=== PATIENT | female | born 1945 | race Caucasian/White ===

== ENCOUNTER 2019-08-31 06:55 | Day surgery (SDC) | payer MEDICARE, BC ==
[~2019-08-31] VITALS: Ht 182.9 cm; Wt 103.0 kg
--- NOTE | ~2019-08-31 | OR ---
[facility] [address] [place], [place] [address] Draft DATE OF OPERATION: 08/31/2019 SURGEON: Leonardo Prakash DPM PREOPERATIVE DIAGNOSES: 1. Hammertoes, toes 2-4, right foot. 2. 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 POSTOPERATIVE DIAGNOSES: 1. Hammertoes, toes 2-4, right foot. 2. 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 SUPERINTENDENT TERMINAL SURGEON: Liz Ortiz DPM. ANESTHESIA: IV general with local block, right foot. SURGICAL CLINICAL REVIEWER: Elaine Drake. SPECIMEN TO PATHOLOGY: None. PROCEDURES PERFORMED: 1. Hammertoe correction with PIPJ fusion, toes 2-4, right foot. 2. Tenotomy and capsulotomy performed to the second and third MTPJ with a capsulotomy alone performed to the fourth MTPJ. DESCRIPTION OF PROCEDURE: The patient was brought to the operating room and placed on the table in the supine position. Anesthesia Department administered IV sedation, after which local block was given to the right foot using a total of 10 mL, 1:1 mixture 2% lidocaine plain and 0.5% ropivacaine plain. The right leg and foot was then prepped and draped in the usual sterile manner and an Esmarch was used for hemostasis. Attention was initially directed to the dorsal right foot, dorsal right second digit at the PIPJ. The contracture at the PIPJ identified and the incision made dorsally as an PATIENT NAME: JANAY CUTLER OPERATIVE REPORT DATE OF : 41 REPORT #: [id number] PHYSICIAN: LEONARDO PRAKASH DPM PCP: FANNY KELLY MD REPORT IS CONFIDENTIAL AND NOT TO BE RELEASED WITHOUT AUTHORIZATION [facility] [address] [place], [place] [address] Draft ellipse centered over the PIPJ. A full skin thickness ellipse was made and once removed exposed tendon, a joint tenotomy and capsulotomy were made at this time transversely and then soft tissues were reflected proximally to expose the head of the proximal phalanx, which was then resected using power instrumentation. The soft tissues reflected slightly to expose the base of the intermediate phalanx for resection of cartilage at the joint. With this performed, the joint was adequately prepared for fusion. Using hand instrumentation, then the drill hole was made into the proximal and intermediate phalanx to accept the joint implant. The joint implant was placed to secure the PIPJ for fusion. At this time, the extensor tendon was noted to be extremely tight and a small stab incision was made and a percutaneous tenotomy made about 3 cm proximal to the first MTPJ, however, a medial capsulotomy was performed due to a deviated position to the toes. The capsulotomy was deemed necessary due to the radiographic position of toes 2-4 noted preoperatively. At this time, the position and alignment to the toe were deemed adequate and the surgical site then irrigated with copious amounts of normal saline. The tendon over the PIPJ reapproximated using 4-0 Vicryl and the skin closed using 5-0 nylon monofilament suture. Dressings then applied consisting of Adaptic, Betadine-soaked gauze, dry gauze, and Coban. The dressings were used to splint the position to the toe as well. PROCEDURE #2: HAMMERTOE CORRECTION, RIGHT THIRD DIGIT This was performed in an identical manner to the second digit without additions or deletions. PROCEDURE #3: HAMMERTOE CORRECTION, RIGHT FOURTH DIGIT This was performed in an identical manner, however, without the proximal tenotomy procedure. The PIPJ fusion was performed and the medial capsulotomy was performed as well. INTRAOPERATIVE COMPLICATIONS: None. ESTIMATED BLOOD LOSS: Less than 5 mL. A postoperative injection was given prior to placement of the dressings. Injection consisted of 6 mL of a 5:1 mixture, 0.5% ropivacaine plain and dexamethasone phosphate 4 mg/mL. PATIENT NAME: JANAY CUTLER OPERATIVE REPORT DATE OF : 41 REPORT #: [id number] PHYSICIAN: LEONARDO PRAKASH DPM PCP: FANNY KELLY MD REPORT IS CONFIDENTIAL AND NOT TO BE RELEASED WITHOUT AUTHORIZATION [facility] [address] [place] [id number] Draft The patient tolerated the procedure and the anesthesia well and left the operating room with vital signs stable and vascular status intact to the right foot as evidenced by hyperemia with removal of the Esmarch. STEPHANIE Burroughs/NIRANJANL /[id number] Copies: ~ PATIENT NAME: HEJANAY HAYDEN OPERATIVE REPORT DATE OF : 41 REPORT #: [id number] PHYSICIAN: LEONARDO PRAKASH DPM PCP: FANNY KELLY MD REPORT IS CONFIDENTIAL AND NOT TO BE RELEASED WITHOUT AUTHORIZATION
[~2019-08-31 06:55] MED LIST: AMLODIPINE BESY10 MG PO; ASPIR-LOW81 MG PO; BENICAR HCT 401 EAC1 PO; BUPROPION HCL100 M1 PO; BYSTOLIC10 MG PO; CIPRO500 MG PO; COMBIGAN EYE DRO5 ML OD; FLUOXETINE HCL10 M1 PO; GABAPENTIN300 MG PO; IRON325 M1 PO; LATANOPROST2.5 ML OPTH; LEVOTHYROXINE150 MCG PO; LOSARTAN-HCTZ1 EAC2 PO; OMEPRAZOLE40 MG PO; PRAVASTATIN SOD40 MG PO; ZOFRAN ODT4 MG PO
--- NOTE | 2019-08-31 08:13 | NUR ---
PT IS ALERT, ORIENTED AND PT SEEMS READY FOR SURGERY. PAINFUL FOR PT TO WEAR CLOSED IN SHOES, AND SHE SAID SHE CAN'T WEAR SANDALS ALL YEAR! A FRIEND WILL TAKE HER HOME. PT REQUESTED PRAYER, WILL FOLLOW NEEDED
--- NOTE | 2019-08-31 09:00 | NUR ---
RESTING EYES CLOSED RR 16, NONLABORED.
--- NOTE | 2019-08-31 12:24 | NUR ---
08/31/19 1224 TAVARES NICHOLS 1216 PATIENT ARRIVED FROM OR NON AROUSABLE ON 6L OF O2 VIA MASK. PATIENT RR WAS EVEN AND UNLABORED. PATIENT APPEARS TO BE RESTING COMFORTABLY. 1222 PATIENT AWAKE AND WAS SAT UP IN BED. OXYGEN WAS REMOVED. PATIENT IS MAINTAINING O2 SAT AT 96% ON ROOM AIR AND IS COMMUNICATING. DENIES PAIN AND NAUSEA.
== END 2019-08-31 12:55 | disposition home or self-care (01) ==
LOC: OPS 06:55 → DS 06:55 → OPS 10:45
PROVIDERS: Podiatrist Foot Surgery
PROC: 0SGP04Z Fusion of Right Toe Phalangeal Joint with Internal Fixation Device, Open Approach (ICD-10-PCS; 2019-08-31)
PROC: 0SNP0ZZ Release Right Toe Phalangeal Joint, Open Approach (ICD-10-PCS; principal; 2019-08-31 10:45)
DX: M20.41 Other hammer toe(s) (acquired), right foot (principal); M24.574 Contracture, right foot; G62.9 Polyneuropathy, unspecified; Z88.0 Allergy status to penicillin; Z79.82 Long term (current) use of aspirin; Z79.899 Other long term (current) drug therapy; Z87.891 Personal history of nicotine dependence; Z87.19 Personal history of other diseases of the digestive system
CPT/HCPCS: 73630; C1776; J1100; J1885; J2250; J2704; J2795; J3010; J7120

== ENCOUNTER 2020-02-06 08:19 | Emergency (ER) | payer MEDICARE, BC ==
[~2020-02-06] VITALS: Ht 182.9 cm; Wt 103.0 kg
--- OUTSIDE RECORDS SUMMARY | 2020-02-06 08:22 | XMS ---
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 Tita has no Care Guidelines for this patient. Dmitri VISIT COUNT (12 MO.) 1 [facility] TOTAL 1 NOTE: Visits indicate total known visits. ED/C VISIT TRACKING (12 MO.) 02/06/2020 08:19 P[facility]RO [facility] OR TYPE: Emergency COMPLAINT: - DIZZINESS, WEAKNESS INPATIENT VISIT TRACKING (12 MO.) No inpatient visits to display in this time frame [email or web address]
--- NOTE | 2020-02-07 08:14 | EKG ---
[facility] [address] [facility] [facility] [place], [place] [address] Signed Sinus rhythm with 1st degree AV block Otherwise normal ECG No previous ECGs available Confirmed by KEITH HUDSON MD ([id number]) on 02/07/2020 8:14:53 AM Electronically Signed By: KEITH HUDSON MD 02/07/20813 PATIENT NAME: JANAY CUTLER HAYDEN Electrocardiogram DATE OF : 41 PHYSICIAN: KEITH HUDSON MD REPORT #: [id number] REPORT IS CONFIDENTIAL AND NOT TO BE RELEASED WITHOUT AUTHORIZATION
== END 2020-02-06 11:14 | disposition home or self-care (01) ==
LOC: ED 08:19
DX: E87.1 Hypo-osmolality and hyponatremia (principal); R06.00 Dyspnea, unspecified; I10 Essential (primary) hypertension; E78.5 Hyperlipidemia, unspecified; Z87.891 Personal history of nicotine dependence; Z88.0 Allergy status to penicillin; Z79.899 Other long term (current) drug therapy
CPT/HCPCS: 71045; 80053; 83880; 85025; 85379; 93005; 93010; 96374; 96375; 99285-25; C9113